=== PATIENT | female | born 1935 | race Caucasian/White ===

== ENCOUNTER 2019-02-19 07:22 | Emergency (ER) | payer MEDICARE ==
[~2019-02-19] VITALS: Ht 157.5 cm; Wt 32.7 kg
[2019-02-19 07:28] VITALS: BP_SYST 159
[2019-02-19 08:10] VITALS: BP_SYST 155
== END 2019-02-19 08:10 | disposition home or self-care (01) ==
LOC: SED 07:22
DX: I10 Essential (primary) hypertension (principal)
CPT/HCPCS: 99283

== ENCOUNTER 2020-05-11 03:32 | Emergency (ER) | payer MEDICARE ==
[~2020-05-11] VITALS: Ht 157.5 cm; Wt 31.8 kg
--- NOTE | 2020-05-11 03:41 | NUR ---
Patient to ER bed 1 to gown for evaluation. Side rails up.
--- NOTE | 2020-05-11 03:42 | NUR ---
DARRYL Pierre at bedside examining patient.
--- NOTE | 2020-05-11 03:45 | NUR ---
84 y/o female bib ALS for confusion and ALOC. Pt has hx of dementia, onset x 3 months. Pt lives alone. No past medical history. Pt knows her name, birthday and that she is in the hospital but does not know where.
[2020-05-11 03:46] VITALS: BP_SYST 173
--- NOTE | 2020-05-11 05:00 | NUR ---
Aleksandr Rey at bedside. Dr Reyez talking to son and patient about plan of care.
[2020-05-11] MEDS ORDERED: MECLIZINE HCL 25 MG TABLET (ANITVERT) PO ONE (05:15)
[2020-05-11 05:20] LABS: BILIRUBIN,URINE NEGATIVE (NEGATIVE); BLOOD, URINE NEGATIVE (NEGATIVE); CLARITY/URINE CLEAR (CLEAR); COLOR,URINE YELLOW (YELLOW); GLUCOSE,URINE NEGATIVE (NEGATIVE); KETONES,URINE NEGATIVE (NEGATIVE); LEUKOCYTE ESTERASE ,URINE NEGATIVE (NEGATIVE); NITRITE, URINE NEGATIVE (NEGATIVE); PH,URINE 6.5 (5.0-8.0); PROTEIN URINE NEGATIVE (NEGATIVE); UROBILINOGEN,URINE 0.2 (0.2-1.0)
[2020-05-11 05:23] LABS: BASOPHILS # (AUTO) 0.1 K/uL (0.0-0.2); BASOPHILS % (AUTO) 1.7 % (0.0-2.0); EOSINOPHILS # (AUTO) 0.1 K/uL (0.0-0.4); EOSINOPHILS % (AUTO) 1.3 % (0.0-4.0); HEMATOCRIT 44.6 % (36-48); HEMOGLOBIN 14.1 g/dL (12.0-16.0); LYMPHOCYTES # (AUTO) 0.7 K/uL (1.0-5.5); LYMPHOCYTES % (AUTO) 9.9 % (20.5-51.5); MEAN CORPUSCULAR HEMOGLOBIN 28 pg (27-31); MEAN CORPUSCULAR HGB CONC 32 % (32-36); MEAN CORPUSCULAR VOLUME 88 fL (79.0-98.0); MONOCYTES # (AUTO) 0.4 K/uL (0.0-1.0); MONOCYTES % (AUTO) 5.7 % (1.7-9.3); NEUTROPHILS # (AUTO) 5.9 K/uL (1.8-7.7); NEUTROPHILS % (AUTO) 81.4 % (40.0-70.0); PLATELET COUNT (AUTO) 198 K/uL (130-430); RED BLOOD CELL COUNT(AUTO) 5.07 MIL/uL (4.2-6.2); RED CELL DISTRIBUTION WIDTH 14.1 % (9.0-15.0); WHITE BLOOD COUNT (AUTO) 7.2 K/uL (4.8-10.8)
[2020-05-11 05:27] LABS: ALANINE AMINOTRANSFERASE 41 U/L (12-78); ALBUMIN 3.5 g/dL (3.4-4.8); ANION GAP 8 (5-15); ASPARTATE AMINOTRANSFERASE 27 U/L (10-37); CALCIUM 8.1 mg/dL (8.4-11.0); CHLORIDE 109 mmol/L (98-107); CREATININE 0.89 mg/dL (0.55-1.30); GLUCOSE 108 mg/dL (70-99); POTASSIUM 4.1 mmol/L (3.5-5.1); SODIUM SERUM 148 mmol/L (136-145); TOTAL BILIRUBIN 0.4 mg/dL (0.0-1.0); UREA NITROGEN, BLOOD 16 mg/dL (8-21)
[2020-05-11 05:31] LABS: ALCOHOL, BLOOD < 3 mg/dL (<10)
[2020-05-11 05:32] LABS: BARBITURATE, URINE NEGATIVE (NEG <=200); METHAMPHETAMINES SCREEN,URINE NEGATIVE (NEG <=500); URINE AMPHETAMINE NEGATIVE (NEG <=500)
[2020-05-11 05:33] LABS: BENZODIAZEPINE, URINE NEGATIVE (NEG <=150); CANNABINOID, URINE NEGATIVE (NEG <=50); COCAINE, URINE NEGATIVE (NEG <=150); OPIATE, URINE NEGATIVE (NEG <=100); PHENCYCLIDINE SCREEN,URINE NEGATIVE (NEG <=25); UR TRICYCLIC ANTIDEPRESSANTS NEGATIVE (NEG <=300); URINE METHADONE NEGATIVE (NEG <=200); URINE OXYCODONE SCREEN NEGATIVE (NEG <=100); URINE PROPOXYPHENE SCREEN NEGATIVE (NEG <=300)
--- NOTE | 2020-05-11 06:00 | NUR ---
Pt has steady gait w/ assistance. Decreased dizziness. no other complaints.
[2020-05-11 06:14] LABS: INR 0.9 (0.8-1.2); PROTHROMBIN TIME 9.7 SECS (9.5-12.5)
[2020-05-11] MEDS ORDERED: MECL-97 PO (06:14)
[2020-05-11 06:30] VITALS: BP_SYST 173
--- NOTE | 2020-05-11 06:30 | NUR ---
Patient given written and verbal discharge instructions and verbalizes understanding. ER MD discussed with patient the results and treatment provided. Patient in stable condition. ID arm band removed. IV catheter removed intact and dressing applied, no active bleeding. Rx of mezcline given. Patient educated on pain management and to follow up with PMD. Opportunity for questions provided and answered. Medication side effect fact sheet provided.
== END 2020-05-11 06:30 | disposition home or self-care (01) ==
LOC: SED 03:32
DX: F03.90 Unspecified dementia, unspecified severity, without behavioral disturbance, psychotic disturbance, mood disturbance, and anxiety (principal); H81.399 Other peripheral vertigo, unspecified ear; Z79.899 Other long term (current) drug therapy
CPT/HCPCS: 36415; 71045; 80053; 80307; 81003; 84484; 85025; 85610; 85730; 93005; 99285; G0482; J8597

== ENCOUNTER 2021-02-13 09:48 | Emergency (ER) | payer MEDICARE, SELFPAY ==
[~2021-02-13] VITALS: Ht 157.5 cm; Wt 45.4 kg
[2021-02-13 09:48] VITALS: BP_SYST 161
[~2021-02-13 09:48] MED LIST: MECL-103 PO
--- NOTE | 2021-02-13 09:48 | NUR ---
BROUGHT IN TO BED #6 [facility]IA [facility]. PLACED IN BED #6 AND TRIAGED. REPORT GIVEN TO FREDERICK
--- NOTE | 2021-02-13 10:44 | NUR ---
85 years old female biba from home with sob, gen weakness, placed on monitoring engineer, continuous pulse oximeter, oxygen 4 liters vnc, ekg completed and handed to Jason Mercedes, lab drawn by airport maintenance laborer, patient went to ct.
[2021-02-13 10:47] LABS: BASOPHILS % (AUTO) 0.3 % (0.0-2.0); HEMATOCRIT 48.1 % (36-48); HEMOGLOBIN 15.4 g/dL (12.0-16.0); LYMPHOCYTES # (AUTO) 0.4 K/uL (1.0-5.5); LYMPHOCYTES % (AUTO) 4.6 % (20.5-51.5); MEAN CORPUSCULAR HEMOGLOBIN 27 pg (27-31); MEAN CORPUSCULAR HGB CONC 32 % (32-36); MEAN CORPUSCULAR VOLUME 85 fL (79.0-98.0); MONOCYTES # (AUTO) 0.8 K/uL (0.0-1.0); MONOCYTES % (AUTO) 9.9 % (1.7-9.3); NEUTROPHILS # (AUTO) 6.7 K/uL (1.8-7.7); NEUTROPHILS % (AUTO) 85.2 % (40.0-70.0); PLATELET COUNT (AUTO) 271 K/uL (130-430); RED BLOOD CELL COUNT(AUTO) 5.66 MIL/uL (4.2-6.2); RED CELL DISTRIBUTION WIDTH 15.8 % (9.0-15.0); WHITE BLOOD COUNT (AUTO) 7.8 K/uL (4.8-10.8)
[2021-02-13 10:48] LABS: ANION GAP 11 (5-15); CALCIUM 8.5 mg/dL (8.4-11.0); CHLORIDE 110 mmol/L (98-107); CREATININE 1.12 mg/dL (0.55-1.30); GLUCOSE 106 mg/dL (70-99); POTASSIUM 3.7 mmol/L (3.5-5.1); SODIUM SERUM 150 mmol/L (136-145); UREA NITROGEN, BLOOD 42 mg/dL (8-21)
[2021-02-13 10:54] LABS: INR 0.9 (0.8-1.2); PROTHROMBIN TIME 9.4 SECS (9.5-12.5)
[2021-02-13 10:56] LABS: ALANINE AMINOTRANSFERASE 41 U/L (12-78); ALBUMIN 3.4 g/dL (3.4-4.8); ASPARTATE AMINOTRANSFERASE 57 U/L (10-37); TOTAL BILIRUBIN 0.8 mg/dL (0.0-1.0)
--- NOTE | 2021-02-13 11:03 | NUR ---
optical laboratory manager [facility] report Trop 0.087, Jason Mercedes notified.
[2021-02-13 11:51] LABS: BILIRUBIN,URINE NEGATIVE (NEGATIVE); CLARITY/URINE SL CLOUDY (CLEAR); COLOR,URINE YELLOW (YELLOW); GLUCOSE,URINE NEGATIVE (NEGATIVE); KETONES,URINE 1+ (NEGATIVE); LEUKOCYTE ESTERASE ,URINE NEGATIVE (NEGATIVE); NITRITE, URINE NEGATIVE (NEGATIVE); PH,URINE 5.5 (5.0-8.0); PROTEIN URINE 2+ (NEGATIVE); UROBILINOGEN,URINE 0.2 (0.2-1.0)
[2021-02-13 11:52] LABS: BLOOD, URINE TRACE (NEGATIVE)
[2021-02-13] MEDS ORDERED: ASPIRIN 325 MG TABLET PO ONE (12:00)
[2021-02-13 12:06] LABS: BARBITURATE, URINE NEGATIVE (NEG <=200); BENZODIAZEPINE, URINE NEGATIVE (NEG <=150); CANNABINOID, URINE NEGATIVE (NEG <=50); COCAINE, URINE NEGATIVE (NEG <=150); METHAMPHETAMINES SCREEN,URINE NEGATIVE (NEG <=500); OPIATE, URINE NEGATIVE (NEG <=100); PHENCYCLIDINE SCREEN,URINE NEGATIVE (NEG <=25); UR TRICYCLIC ANTIDEPRESSANTS NEGATIVE (NEG <=300); URINE AMPHETAMINE NEGATIVE (NEG <=500); URINE METHADONE NEGATIVE (NEG <=200); URINE OXYCODONE SCREEN NEGATIVE (NEG <=100); URINE PROPOXYPHENE SCREEN NEGATIVE (NEG <=300)
[2021-02-13 12:13] LABS: BACTERIA,URINE FEW /HPF (None Seen); HYALINE CASTS, URINE 0-10 /LPF (None Seen); WBC,URINE 0-3 /HPF (0-3)
--- NOTE | 2021-02-13 12:35 | NUR ---
DR. ADHIKARI, PAULINE EPRP DOC, CALLED BACK TO SPEAK TO DR. VU REGARDING PT STATUS.
[2021-02-13] MEDS ORDERED: PIPERACILLIN/TAZOBACTAM 2.25 GM in NS 50 ML IV ONE (12:45)
[2021-02-13] MEDS ORDERED: VANCOMYCIN HCL 500 MG in NS 100 ML IV ONE (12:45)
[2021-02-13] MEDS ORDERED: DEXAMETHASONE SOD PHOSPHATE 10 MG/ML VIAL IVP ONE (12:45)
[2021-02-13] MEDS ORDERED: NS 500 ML IV ONE (12:45)
--- NOTE | 2021-02-13 14:44 | NUR ---
TRANSFER INFO [facility] Dr. Yeung [phone] ALS ETA 1520 SPOKE TO MICHELLE
[2021-02-13 16:48] VITALS: BP_SYST 114
--- NOTE | 2021-02-13 16:51 | NUR ---
Patient to be transferred to [facility]. Is being transferred due to higher level of care. Receiving facility has accepting physician and available space. ER physician has signed transfer form. Patient or responsible republican has agreed to transfer and signed form. Patient belongings inventoried and will be sent with patient. Copy of nursing notes, lab reports, EKG, Physicians Orders and X-rays to be sent with patient. Report called to GI Taylor at receiving facility. Receiving physician is . ambulance service has been called for transfer. ETA is
== END 2021-02-13 16:51 | disposition short-term general hospital (02) ==
LOC: SED 09:48
DX: U07.1 COVID-19 (principal); R09.02 Hypoxemia; R41.82 Altered mental status, unspecified
CPT/HCPCS: 36415; 70450; 71045; 74176; 76376; 80053; 80307; 81000; 84484; 85025; 85610; 85730; 87426; 93005; 96361; 96365; 96367; 96375; 99285; J1100; J2543; J3370; J7040